=== PATIENT | female | born 1965 | race American Indian/Alaskan Native ===

== ENCOUNTER 2019-04-28 00:49 | Observation (INO) | payer OTHER ==
[2019-04-28] MEDS ORDERED: MECLIZINE 25 MG TAB PO ONE (01:42)
[2019-04-28 02:19] LABS: Basophils # (Auto) 0.1 K/mm3 (0.0-0.1); Basophils % (Auto) 0.7 % (0.0-1.8); Eosinophils % (Auto) 0.1 % (0.0-4.3); Lymphocytes # (Auto) 2.4 K/mm3 (1.2-5.4); Lymphocytes % (Auto) 20.7 % (13.4-35.0); Mean Corpuscular HGB Conc 28 % (30-34); Monocytes # (Auto) 0.7 K/mm3 (0.0-0.8); Monocytes % (Auto) 5.8 % (0.0-7.3); Platelet Count 556 K/mm3 (140-440); Red Blood Count 3.45 M/mm3 (3.65-5.03); Red Cell Distribution Width 18.2 % (13.2-15.2)
--- NOTE | 2019-04-28 02:40 | Emergency Department Report ---
ED General Adult HPI - General Chief complaint: Dizziness Stated complaint: HIGH BLOOD GLUCOSE Time Seen by Provider: 04/28/19 01:34 Source: patient Mode of arrival: Ambulatory Limitations: No Limitations - History of Present Illness Initial comments: patient is a 53-year-old female presents emergency room with complaints of lightheadedness that began 4 days ago. She has associated nausea. She states she also has dizziness which is worse with laying flat. Patient states that tonight she was at the game when she began to feel dizzy and had an episode of vomiting. she states that the paramedics checked her blood sugar and it was 290. Patient denies any chest pain, shortness of breath, diarrhea, abdominal pain, vision changes, numbness, weakness. She states she has a past medical history of anxiety and panic attacks. She denies any allergies medications. Patient states that when she was a teenager while she was she had anemia but never had to receive a blood transfusion. She states lately she has been eating a lot of ice. she denies any melena, hematochezia, hematemesis. States occasionally she does have heavy menstrual cycles. Severity scale (0 -10): 0 - Related Data Previous Rx's Medication Instructions Recorded Last Taken Type ALBUTEROL Inhaler(NF) [VENTOLIN 2 puff IH QID PRN #1 inha 03/23/18 Unknown Rx Inhaler(NF)] Azithromycin 250 mg PO DAILY #6 tablet 03/23/18 Unknown Rx Benzonatate [Tessalon Perle] 100 mg PO TID PRN #30 capsule 03/23/18 Unknown Rx Ibuprofen [Ibuprofen 800] 800 mg PO TID PRN #30 tablet 03/23/18 Unknown Rx predniSONE [Deltasone] 40 mg PO QDAY #10 tab 03/23/18 Unknown Rx Allergies Allergy/AdvReac Type Severity Reaction Status Date / Time No Known Allergies Allergy Unverified 03/23/18 17:51 ED Review of Systems ROS: Stated complaint: HIGH BLOOD GLUCOSE Other details as noted in HPI Comment: All other systems reviewed and negative ED Past Medical Hx - Past Medical History Previous Medical History?: No - Surgical History Past Surgical History?: No - Social History Smoking Status: Never Smoker Substance Use Type: None - Medications Home Medications: Home Medications Medication Instructions Recorded Confirmed Last Taken Type ALBUTEROL Inhaler(NF) [VENTOLIN 2 puff IH QID PRN #1 inha 03/23/18 Unknown Rx Inhaler(NF)] Azithromycin 250 mg PO DAILY #6 tablet 03/23/18 Unknown Rx Benzonatate [Tessalon Perle] 100 mg PO TID PRN #30 capsule 03/23/18 Unknown Rx Ibuprofen [Ibuprofen 800] 800 mg PO TID PRN #30 tablet 03/23/18 Unknown Rx predniSONE [Deltasone] 40 mg PO QDAY #10 tab 03/23/18 Unknown Rx ED Physical Exam - General Limitations: No Limitations General appearance: alert, in no apparent distress - Head Head exam: Present: atraumatic, normocephalic - Eye Eye exam: Present: normal appearance, PERRL, EOMI - ENT ENT exam: Present: mucous membranes moist, TM's normal bilaterally, normal external ear exam - Respiratory Respiratory exam: Present: normal lung sounds bilaterally. Absent: respiratory distress, wheezes, rales, rhonchi, stridor, chest wall tenderness, accessory muscle use, decreased breath sounds, prolonged expiratory - Cardiovascular Cardiovascular Exam: Present: regular rate, normal rhythm, normal heart sounds. Absent: systolic murmur, diastolic murmur, rubs, gallop - Neurological Exam Neurological exam: Present: alert, oriented X3, CN II-XII intact, normal gait, other (normal finger to nose, normal heel to pimentel, 5/5 strength in the BUE/BLE, sensation intact throughout, no focal neuro deficits). Absent: motor sensory deficit - Psychiatric Psychiatric exam: Present: normal affect, normal mood - Skin Skin exam: Present: warm, dry, intact ED Course Vital Signs 04/28/19 04/28/19 00:57 02:05 Temperature 98.2 F 98.2 F Pulse Rate 105 H 97 H Respiratory 17 18 Rate Blood Pressure 158/65 Blood Pressure 151/85 [Left] O2 Sat by Pulse 100 100 Oximetry - Consultations Consultation #1: 04/28/19 02:[address] Escalera, hospitalist concerning patient and lab results will admit pt to the hospital, will accept and resume care of patient advised MedSurg observation, advised to transfuse two units pRBCs. ED Medical Decision Making - Lab Data Result diagrams: 04/28/19 01:48 04/28/19 01:48 Lab Results 04/28/19 04/28/19 04/28/19 Range/Units 01:10 01:48 01:48 WBC 11.4 H (4.5-11.0) K/mm3 RBC 3.45 L (3.65-5.03) M/mm3 Hgb 5.8 L* (10.1-14.3) gm/dl Hct 20.7 L (30.3-42.9) % MCV 60 L (79-97) fl MCH 17 L (28-32) pg MCHC 28 L (30-34) % RDW 18.2 H (13.2-15.2) % Plt Count 556 H (140-440) K/mm3 Lymph % (Auto) 20.7 (13.4-35.0) % [place] % (Auto) 5.8 (0.0-7.3) % Eos % (Auto) 0.1 (0.0-4.3) % Baso % (Auto) 0.7 (0.0-1.8) % Lymph # 2.4 (1.2-5.4) K/mm3 [place] # 0.7 (0.0-0.8) K/mm3 Eos # 0.0 (0.0-0.4) K/mm3 Baso # 0.1 (0.0-0.1) K/mm3 Seg Neutrophils % 72.7 H (40.0-70.0) % Seg Neutrophils # 8.3 H (1.8-7.7) K/mm3 Sodium 134 L (137-145) mmol/L Potassium 3.6 (3.6-5.0) mmol/L Chloride 100.5 (98-107) mmol/L Carbon Dioxide 21 L (22-30) mmol/L Anion Gap 16 mmol/L BUN 5 L (7-17) mg/dL Creatinine 0.6 L (0.7-1.2) mg/dL Estimated GFR > 60 ml/min BUN/Creatinine Ratio 8 % Glucose 209 H (65-100) mg/dL POC Glucose 226 H (70-105) Calcium 8.9 (8.4-10.2) mg/dL Phosphorus 2.00 L (2.5-4.5) mg/dL Magnesium 1.70 (1.7-2.3) mg/dL Total Bilirubin 0.30 (0.1-1.2) mg/dL AST 11 (5-40) units/L ALT 8 (7-56) units/L Alkaline Phosphatase 101 (35-129) units/L Total Protein 7.8 (6.3-8.2) g/dL Albumin 4.2 (3.9-5) g/dL Albumin/Globulin Ratio 1.2 % Plasma/Serum Alcohol (0-0.07) % 04/28/19 Range/Units 01:53 WBC (4.5-11.0) K/mm3 RBC (3.65-5.03) M/mm3 Hgb (10.1-14.3) gm/dl Hct (30.3-42.9) % MCV (79-97) fl MCH (28-32) pg MCHC (30-34) % RDW (13.2-15.2) % Plt Count (140-440) K/mm3 Lymph % (Auto) (13.4-35.0) % [place] % (Auto) (0.0-7.3) % Eos % (Auto) (0.0-4.3) % Baso % (Auto) (0.0-1.8) % Lymph # (1.2-5.4) K/mm3 [place] # (0.0-0.8) K/mm3 Eos # (0.0-0.4) K/mm3 Baso # (0.0-0.1) K/mm3 Seg Neutrophils % (40.0-70.0) % Seg Neutrophils # (1.8-7.7) K/mm3 Sodium (137-145) mmol/L Potassium (3.6-5.0) mmol/L Chloride (98-107) mmol/L Carbon Dioxide (22-30) mmol/L Anion Gap mmol/L BUN (7-17) mg/dL Creatinine (0.7-1.2) mg/dL Estimated GFR ml/min BUN/Creatinine Ratio % Glucose (65-100) mg/dL POC Glucose (70-105) Calcium (8.4-10.2) mg/dL Phosphorus (2.5-4.5) mg/dL Magnesium (1.7-2.3) mg/dL Total Bilirubin (0.1-1.2) mg/dL AST (5-40) units/L ALT (7-56) units/L Alkaline Phosphatase (35-129) units/L Total Protein (6.3-8.2) g/dL Albumin (3.9-5) g/dL Albumin/Globulin Ratio % Plasma/Serum Alcohol < 0.01 (0-0.07) % - EKG Data EKG shows normal: sinus rhythm, axis, intervals, ST-T waves Rate: normal - EKG Data 04/28/19 03:23 low voltage no STEMI - Medical Decision Making patient is a 53-year-old female presents emergency room with complaints of lightheadedness that began 4 days ago. She has associated nausea. She states she also has dizziness which is worse with laying flat. Patient states that tonight she was at the game when she began to feel dizzy and had an episode of vomiting. she states that the paramedics checked her blood sugar and it was 290. Patient denies any chest pain, shortness of breath, diarrhea, abdominal pain, vision changes, numbness, weakness. She states she has a past medical history of anxiety and panic attacks. She denies any allergies medications. Patient states that when she was a teenager while she was she had anemia but never had to receive a blood transfusion. She states lately she has been eating a lot of ice. she denies any melena, hematochezia, hematemesis. States occasionally she does have heavy menstrual cycles. initial vitals with mild tachycardia which improved upon repeat. on exam: normal finger to nose, normal heel to pimentel, 5/5 strength in the BUE/BLE, sensation intact throughout, no focal neuro deficits. EKG with low voltage otherwise normal. H/H is 5.8/20.7. phos is low at 2.0. repleted phos. Spoke with Dr. Escalera, hospitalist concerning patient and lab results will admit pt to the hospital, will accept and resume care of patient advised MedSurg observation, advised to transfuse two units pRBCs. pt transfused two units and admitted to the hospitalist. - Differential Diagnosis anemia, vertigo, labyrinthitis, otitis, Mnire's, electrolyte disturbance Critical care attestation.: If time is entered above; I have spent that time in minutes in the direct care of this critically ill patient, excluding procedure time. ED Disposition Clinical Impression: Symptomatic anemia, Dizziness, Nausea Disposition: DC-09 OP ADMIT IP TO THIS HOSP Is pt being admited?: Yes Does the pt Need Aspirin: No Condition: Fair Instructions: Anemia (ED) Referrals: PRIMARY CARE, [Primary Care Provider] - 3-5 Days
[2019-04-28 02:43] LABS: Hematocrit 20.7 % (30.3-42.9); Hemoglobin 5.8 gm/dl (10.1-14.3); Mean Corpuscular Volume 60 fl (79-97)
[2019-04-28] MEDS ORDERED: SODIUM CHLORIDE 0.9% 500 ML 500 ML IV ONE ×2 (02:43→02:54)
[2019-04-28 02:45] LABS: Alanine Aminotransferase 8 units/L (7-56); Albumin 4.2 g/dL (3.9-5); BUN/Creatinine Ratio 8; Blood Urea Nitrogen 5 mg/dL (7-17); Calcium 8.9 mg/dL (8.4-10.2); Hemolysis Index 0
[2019-04-28 02:55] LABS: Bacteria,Urine 1+ /HPF (Negative); Bilirubin,Urine NEG (Negative); Blood,Urine NEG (Negative); Color,Urine Colorless (Yellow); Protein,Urine <15 mg/dL mg/dL (Negative); RBC,Urine < 1.0 /HPF (0.0-6.0); Urobilinogen,Urine < 2.0 mg/dL (<2.0); WBC,Urine < 1.0 /HPF (0.0-6.0)
[2019-04-28] MEDS ORDERED: PHOS-NAK POWDER PACKET PO ONE (03:15)
[2019-04-28 03:51] LABS: INR 1.04 (0.87-1.13)
[2019-04-28 03:52] LABS: Partial Thromboplastin Time 29.2 Sec. (24.2-36.6)
[2019-04-28] MEDS ORDERED: SODIUM CHLORIDE 0.9% 500 ML 500 ML ONE (04:50)
[2019-04-28] MEDS ORDERED: oxyCODONE /ACETAMINOPHEN 5-325MG TAB PO PRN (05:11)
[2019-04-28] MEDS ORDERED: HYDROmorphone 1 MG/1 ML INJ IV PRN (05:11)
[2019-04-28] MEDS ORDERED: ACETAMINOPHEN 325 MG TAB PO PRN (05:11)
[2019-04-28] MEDS ORDERED: ONDANSETRON 4 MG/2 ML INJ IV PRN (05:11)
--- NOTE | 2019-04-28 05:18 | History and Physical Report ---
History of Present Illness Date of examination: 04/28/19 Date of admission: 04/28/19 02:56 Chief complaint: Weak and lightheaded for 4 days History of present illness: 53-year-old -[place] female with no significant past medical history except for episodic asthma comes in for feeling weak and lightheaded for 4 days. Patient also has been feeling dizzy. Eating ice chips on a regular basis.Heaavy menstrual paeriods for one day.Menstual periods last for 3 days. No epistaxis, vomiting of blood black tarry stools. Patient had one episode of anemia many ye ars ago when she was . No GI bleed. Gets tired easily. Past Medical History Previous Medical History?: No Surgical History Past Surgical History?: No Social History Smoking Status: Never Smoker Substance Use Type: None Family history Htn - Medications Home Medications: Home Medications Medication Instructions Recorded Confirmed Last Taken Type ALBUTEROL Inhaler(NF) [VENTOLIN 2 puff IH QID PRN #1 inha 03/23/18 Unknown Rx Inhaler(NF)] Azithromycin 250 mg PO DAILY #6 tablet 03/23/18 Unknown Rx Benzonatate [Tessalon Perle] 100 mg PO TID PRN #30 capsule 03/23/18 Unknown Rx Ibuprofen [Ibuprofen 800] 800 mg PO TID PRN #30 tablet 03/23/18 Unknown Rx predniSONE [Deltasone] 40 mg PO QDAY #10 tab 03/23/18 Unknown Rx Review of Systems ROS: Stated complaint: HIGH BLOOD GLUCOSE Other details as noted in HPI Comment: All other systems reviewed and negative Medications and Allergies Allergies Allergy/AdvReac Type Severity Reaction Status Date / Time No Known Allergies Allergy Unverified 03/23/18 17:51 Home Medications Medication Instructions Recorded Confirmed Last Taken Type No Known Home Medications [No 04/28/19 04/28/19 Unknown History Reported Home Medications] Exam - Constitutional Vitals: Temp Pulse Resp BP Pulse Ox 98.4 F 97 H 20 128/69 97 04/28/19 05:15 04/28/19 05:15 04/28/19 05:15 04/28/19 05:15 04/28/19 05:15 General appearance: Present: no acute distress, well-nourished - EENT Eyes: Present: PERRL ENT: hearing intact, clear oral mucosa - Neck Neck: Present: supple, normal ROM - Respiratory Respiratory effort: normal Respiratory: bilateral: CTA - Cardiovascular Heart rate: 78 Rhythm: regular Heart Sounds: Present: S1 & S2. Absent: rub, click - Extremities Extremities: no ischemia, pulses intact, pulses symmetrical, No edema Peripheral Pulses: within normal limits - Abdominal General gastrointestinal: Present: soft, non-tender, non-distended, normal bowel sounds Female genitourinary: Present: normal - Rectal Rectal Exam: deferred - Integumentary Integumentary: Present: clear, warm, dry - Musculoskeletal Musculoskeletal: gait normal, strength equal bilaterally - Psychiatric Psychiatric: appropriate mood/affect, intact judgment & insight - Neurologic Neurologic: CNII-XII intact, moves all extremities - Allied Health Allied health notes reviewed: nursing, case management Results - Labs CBC & Chem 7: 04/28/19 01:48 04/28/19 01:48 Labs: Laboratory Last Values WBC 11.4 K/mm3 (4.5-11.0) H 04/28/19 01:48 RBC 3.45 M/mm3 (3.65-5.03) L 04/28/19 01:48 Hgb 5.8 gm/dl (10.1-14.3) L* 04/28/19 01:48 Hct 20.7 % (30.3-42.9) L 04/28/19 01:48 MCV 60 fl (79-97) L 04/28/19 01:48 MCH 17 pg (28-32) L 04/28/19 01:48 MCHC 28 % (30-34) L 04/28/19 01:48 RDW 18.2 % (13.2-15.2) H 04/28/19 01:48 Plt Count 556 K/mm3 (140-440) H 04/28/19 01:48 Lymph % (Auto) 20.7 % (13.4-35.0) 04/28/19 01:48 [place] % (Auto) 5.8 % (0.0-7.3) 04/28/19 01:48 Eos % (Auto) 0.1 % (0.0-4.3) 04/28/19 01:48 Baso % (Auto) 0.7 % (0.0-1.8) 04/28/19 01:48 Lymph # 2.4 K/mm3 (1.2-5.4) 04/28/19 01:48 [place] # 0.7 K/mm3 (0.0-0.8) 04/28/19 01:48 Eos # 0.0 K/mm3 (0.0-0.4) 04/28/19 01:48 Baso # 0.1 K/mm3 (0.0-0.1) 04/28/19 01:48 Seg Neutrophils % 72.7 % (40.0-70.0) H 04/28/19 01:48 Seg Neutrophils # 8.3 K/mm3 (1.8-7.7) H 04/28/19 01:48 PT 13.5 Sec. (12.2-14.9) 04/28/19 03:09 INR 1.04 (0.87-1.13) 04/28/19 03:09 APTT 29.2 Sec. (24.2-36.6) 04/28/19 03:09 Sodium 134 mmol/L (137-145) L 04/28/19 01:48 Potassium 3.6 mmol/L (3.6-5.0) 04/28/19 01:48 Chloride 100.5 mmol/L (98-107) 04/28/19 01:48 Carbon Dioxide 21 mmol/L (22-30) L 04/28/19 01:48 Anion Gap 16 mmol/L 04/28/19 01:48 BUN 5 mg/dL (7-17) L 04/28/19 01:48 Creatinine 0.6 mg/dL (0.7-1.2) L 04/28/19 01:48 Estimated GFR > 60 ml/min 04/28/19 01:48 BUN/Creatinine Ratio 8 % 04/28/19 01:48 Glucose 209 mg/dL (65-100) H 04/28/19 01:48 POC Glucose 226 (70-105) H 04/28/19 01:10 Calcium 8.9 mg/dL (8.4-10.2) 04/28/19 01:48 Phosphorus 2.00 mg/dL (2.5-4.5) L 04/28/19 01:48 Magnesium 1.70 mg/dL (1.7-2.3) 04/28/19 01:48 Total Bilirubin 0.30 mg/dL (0.1-1.2) 04/28/19 01:48 AST 11 units/L (5-40) 04/28/19 01:48 ALT 8 units/L (7-56) 04/28/19 01:48 Alkaline Phosphatase 101 units/L (35-129) 04/28/19 01:48 Total Protein 7.8 g/dL (6.3-8.2) 04/28/19 01:48 Albumin 4.2 g/dL (3.9-5) 04/28/19 01:48 Albumin/Globulin Ratio 1.2 % 04/28/19 01:48 Urine Color Colorless (Yellow) 04/28/19 02:36 Urine Turbidity Clear (Clear) 04/28/19 02:36 Urine pH 7.0 (5.0-7.0) 04/28/19 02:36 Ur Specific [place] 1.003 (1.003-1.030) 04/28/19 02:36 Urine Protein <15 mg/dl mg/dL (Negative) 04/28/19 02:36 Urine Glucose (UA) Neg mg/dL (Negative) 04/28/19 02:36 Urine Ketones Neg mg/dL (Negative) 04/28/19 02:36 Urine Blood Neg (Negative) 04/28/19 02:36 Urine Nitrite Neg (Negative) 04/28/19 02:36 Urine Bilirubin Neg (Negative) 04/28/19 02:36 Urine Urobilinogen < 2.0 mg/dL (<2.0) 04/28/19 02:36 Ur Leukocyte Esterase Neg (Negative) 04/28/19 02:36 Urine WBC (Auto) < 1.0 /HPF (0.0-6.0) 04/28/19 02:36 Urine RBC (Auto) < 1.0 /HPF (0.0-6.0) 04/28/19 02:36 U Epithel Cells (Auto) < 1.0 /HPF (0-13.0) 04/28/19 02:36 Urine Bacteria (Auto) 1+ /HPF (Negative) 04/28/19 02:36 Plasma/Serum Alcohol < 0.01 % (0-0.07) 04/28/19 01:53 Blood Type O POSITIVE 04/28/19 03:09 Antibody Screen Negative 04/28/19 03:09 Crossmatch See Detail 04/28/19 03:09 Assessment and Plan Advance Directives: Yes (full code) VTE prophylaxis?: Chemical Plan of care discussed with patient/family: Yes - Patient Problems (1) Symptomatic anemia Current Visit: Yes Status: Acute Plan to address problem: Patient's anemia may be nutritional. Iron levels, B12 and folic acid ordered No source of bleeding. Her menstrual periods are near normal. GI evaluation as an outpatient. Transfuse 2 units of blood (2) Diabetes mellitus, new onset Current Visit: Yes Status: Acute Plan to address problem: Patient counseled about new onset diabetes Patient started on metformin and coverage Primary team to decide about the hypoglycemics. Dietitian consult requested (3) Hyponatremia Current Visit: Yes Status: Acute Plan to address problem: Mild Should correct with IV Fluids. (4) DVT prophylaxis Current Visit: Yes Status: Acute Plan to address problem: SCDs and GI prophylaxis
[2019-04-28] MEDS ORDERED: SODIUM CHLORIDE 0.9% 1000 ML 1,000 ML IV SCH (06:00)
[2019-04-28] MEDS: INSULIN LISPRO 100 UNIT/ML SUB-Q SCH ×4 (07:30→23:08)
[2019-04-28] MEDS: FAMOTIDINE 20 MG/2 ML INJ IV SCH ×2 (10:09→23:08)
--- NOTE | 2019-04-28 12:40 | Consultation ---
History of Present Illness Consult date: 04/28/19 Requesting physician: YANY BRADLEY Reason for consult: menorrhagia History of present illness: Pt is a 53-year-old -[place] female LMP 04/09/19 with no significant past medical history except for episodic asthma comes in for feeling weak and lightheaded for 4 days. Patient also has been feeling dizzy, eating ice chips on a regular basis. Her menstrual cycles are heavy for 1 day and last for 3 days. No epistaxis, vomiting of blood black tarry stools. Patient had one episode of anemia many years ago when she was . No GI bleed. Gets tired easily. She denies history of fibroids or recent Hearing Specialist evaluation, so I have been consulted to evaluate her Menorrhagia. Past History Past Medical History: diabetes Past Surgical History: no surgical history PATIENT INTAKE COORDINATOR History: denies: abnormal PAP smear, fibroids Family/Genetic History: none Social history: no significant social history, single Medications and Allergies Allergies Allergy/AdvReac Type Severity Reaction Status Date / Time No Known Allergies Allergy Unverified 03/23/18 17:51 Home Medications Medication Instructions Recorded Confirmed Last Taken Type No Known Home Medications [No 04/28/19 04/28/19 Unknown History Reported Home Medications] Active Meds: Active Medications Acetaminophen (Tylenol) 650 mg PO Q4H PRN PRN Reason: Pain MILD(1-3)/Fever >100.5/RAMIREZ Famotidine (Pepcid) 20 mg IV BID TETE Last Admin: 04/28/19 10:09 Dose: 20 mg Documented by: Hydromorphone HCl (Dilaudid) 0.5 mg IV Q3H PRN PRN Reason: Pain , Severe (7-10) Sodium Chloride (Nacl 0.9% 1000 Ml) 1,000 mls @ 42 mls/hr IV DIRECT TETE Insulin Human Lispro (Humalog) 0 unit SUB-Q ACHS TETE; Protocol Last Admin: 04/28/19 11:30 Dose: 3 unit Documented by: Ondansetron HCl (Zofran) 4 mg IV Q8H PRN PRN Reason: Nausea And Vomiting Oxycodone/Acetaminophen (Percocet 5/325) 1 tab PO Q6H PRN PRN Reason: Pain, Moderate (4-6) Sodium Chloride (Sodium Chloride Flush Syringe 10 Ml) 10 ml IV BID [facility] Last Admin: 04/28/19 10:09 Dose: 10 ml Documented by: Sodium Chloride (Sodium Chloride Flush Syringe 10 Ml) 10 ml IV PRN PRN PRN Reason: LINE FLUSH - Vital Signs Vital signs: Vital Signs Temp Pulse Resp BP Pulse Ox 98.2 F 105 H 17 158/65 100 04/28/19 00:57 04/28/19 00:57 04/28/19 00:57 04/28/19 00:57 04/28/19 00:57 Temp Pulse Resp BP Pulse Ox 32.1 F L 94 H 18 119/65 96 04/28/19 11:38 04/28/19 11:38 04/28/19 11:38 04/28/19 11:38 04/28/19 11:38 - Physical Exam Breasts: Positive: deferred Cardiovascular: Regular rate Lungs: Positive: Clear to auscultation Abdomen: Positive: normal appearance Genitourinary (Female): Positive: other (deferred) Uterus: Positive: enlarged Extremities: Positive: normal Results Result Diagrams: 04/28/19 13:09 04/28/19 13:09 Abnormal lab results 04/28/19 04/28/19 04/28/19 Range/Units 01:10 01:48 01:48 WBC 11.4 H (4.5-11.0) K/mm3 RBC 3.45 L (3.65-5.03) M/mm3 Hgb 5.8 L* (10.1-14.3) gm/dl Hct 20.7 L (30.3-42.9) % MCV 60 L (79-97) fl MCH 17 L (28-32) pg MCHC 28 L (30-34) % RDW 18.2 H (13.2-15.2) % Plt Count 556 H (140-440) K/mm3 Seg Neutrophils % 72.7 H (40.0-70.0) % Seg Neutrophils # 8.3 H (1.8-7.7) K/mm3 Sodium 134 L (137-145) mmol/L Carbon Dioxide 21 L (22-30) mmol/L BUN 5 L (7-17) mg/dL Creatinine 0.6 L (0.7-1.2) mg/dL Glucose 209 H (65-100) mg/dL POC Glucose 226 H (70-105) Phosphorus 2.00 L (2.5-4.5) mg/dL Crossmatch 04/28/19 04/28/19 04/28/19 Range/Units 03:09 07:31 10:58 WBC (4.5-11.0) K/mm3 RBC (3.65-5.03) M/mm3 Hgb (10.1-14.3) gm/dl Hct (30.3-42.9) % MCV (79-97) fl MCH (28-32) pg MCHC (30-34) % RDW (13.2-15.2) % Plt Count (140-440) K/mm3 Seg Neutrophils % (40.0-70.0) % Seg Neutrophils # (1.8-7.7) K/mm3 Sodium (137-145) mmol/L Carbon Dioxide (22-30) mmol/L BUN (7-17) mg/dL Creatinine (0.7-1.2) mg/dL Glucose (65-100) mg/dL POC Glucose 191 H 200 H (70-105) Phosphorus (2.5-4.5) mg/dL Crossmatch See Detail All other labs normal. Ultrasound: report reviewed (Uterus 15 x 6.3 x 7.9cm with multiple fibroids - largest 2.9 x 2.4 x 2.1cm) Assessment and Plan - Patient Problems (1) Uterine fibroid Onset Date: 04/28/19 Current Visit: Yes Status: Acute Qualifiers: Uterine leiomyoma location: intramural and subserous Qualified Code(s): D25.1 - Intramural leiomyoma of uterus; D25.2 - Subserosal leiomyoma of uterus Plan to address problem: A: Symptomatic anemia Menorrhagia Uterine fibroids P: Agree with admission for symptomatic anemia - now resolved after blood transfusion Can follow up with me in the office for Pap and endometrial biopsy and further evaluation of uterine fibroids (2) Symptomatic anemia Onset Date: 04/28/19 Current Visit: Yes Status: Acute
[2019-04-28 14:07] LABS: BUN/Creatinine Ratio 14; Blood Urea Nitrogen 7 mg/dL (7-17); Calcium 9.2 mg/dL (8.4-10.2); Hemolysis Index 0
[2019-04-28 14:08] LABS: Hematocrit 26.4 % (30.3-42.9); Hemoglobin 8.4 gm/dl (10.1-14.3); Mean Corpuscular HGB Conc 32 % (30-34); Platelet Count 524 K/mm3 (140-440); Red Blood Count 4.03 M/mm3 (3.65-5.03)
[2019-04-28 14:11] LABS: Mean Corpuscular Volume 65 fl (79-97); Red Cell Distribution Width 26.2 % (13.2-15.2)
[2019-04-28 14:36] LABS: % Iron Saturation 4.85 %
[2019-04-28 15:22] LABS: Anisocytosis 2+; Basophils % (Manual) 0 % (0.0-1.8); Hypochromasia 1+; Total Cells Counted 100
--- NOTE | 2019-04-28 18:41 | Ultrasound Report ---
ULTRASOUND PELVIS INDICATION / CLINICAL INFORMATION: menorrhagia. TECHNIQUE: Transabdominal. Duplex Color Doppler used: Yes. COMPARISON: None available FINDINGS: UTERUS: Present. - Appearance (if present): No significant abnormality. - Size in cm (if present): 15 x 6.3 x 7.9. - Endometrial Complex (if present): No significant abnormality.. Thickness in cm (if measured) = 1.8 - Mass lesions: There are multiple uterine fibroids. The largest in the right superior myometrium natalia sures 2.9 x 2.4 x 2.1 cm. There are several additional small myometrial fibroids measuring around 2 t o 3 cm. - Additional findings: None. RIGHT ADNEXA: Not well visualized. No adnexal masses. LEFT ADNEXA: There is a 2.9 cm simple cyst in the left ovary, probable dominant follicle. Normal colo r Doppler blood flow. URINARY BLADDER: No significant abnormality. FREE FLUID: None. ADDITIONAL FINDINGS: None. IMPRESSION: 1. Enlarged uterus containing multiple uterine fibroids. 2. Dominant follicle in the left ovary. 3. The right ovary was not discretely visualized but there are no appreciable adnexal masses. Signer Name: Vamsi Trejo MD Signed: 04/28/2019 6:36 PM Workstation Name: [id number]
[2019-04-29 04:35] LABS: Hematocrit 25.5 % (30.3-42.9); Mean Corpuscular HGB Conc 31 % (30-34); Platelet Count 472 K/mm3 (140-440); Red Blood Count 3.87 M/mm3 (3.65-5.03)
[2019-04-29 04:51] LABS: Mean Corpuscular Volume 66 fl (79-97)
[2019-04-29 04:52] LABS: Red Cell Distribution Width 26.2 % (13.2-15.2)
[2019-04-29 04:56] LABS: BUN/Creatinine Ratio 10; Blood Urea Nitrogen 6 mg/dL (7-17); Calcium 8.5 mg/dL (8.4-10.2); Hemolysis Index 0
[2019-04-29 05:21] LABS: Anisocytosis 3+; Basophils % (Manual) 0 % (0.0-1.8); Eosinophils % (Manual) 0 % (0.0-4.3); Total Cells Counted 100
[2019-04-29 05:22] LABS: Hypochromasia 2+; Platelet Estimate Consistent w Auto
[2019-04-29] MEDS: INSULIN LISPRO 100 UNIT/ML SUB-Q SCH ×4 (08:30→23:52)
--- NOTE | 2019-04-29 08:40 | Discharge Summary ---
Providers - Providers Date of Admission: 04/28/19 02:56 Attending physician: YANY BRADLEY MD 04/28/19 06:00 Consult to Dietitian/Nutrition [CONS] Routine Physician Instructions: Reason For Exam: Reason for Consult: Pt needs oral supplement 04/28/19 10:06 Consult to Physician [CONS] Routine Comment: Consulting Provider: JAYLEN MCLEOD Physician Instructions: Reason For Exam: menorrhagia Primary care physician: COOPERATIVE EDUCATION COORDINATOR Hospitalization Condition: Fair Disposition: DC-01 TO HOME OR SELFCARE Time spent for discharge: 33 mins Core Measure Documentation - Palliative Care Palliative Care/ Comfort Measures: Not Applicable Exam - Constitutional Vitals: Temp Pulse Resp BP Pulse Ox 98.0 F 77 20 134/63 98 04/28/19 22:10 04/29/19 06:46 04/29/19 06:46 04/29/19 06:46 04/29/19 06:46 Plan Additional Instructions: Please see your PCP for referal to supervisor coin machine. - you need repeat thyroid test in 6-8 weeks Follow up with: REBEKAH ROMERO MD [Staff Physician] - 7 Days PRIMARY MD AMISHA [Primary Care Provider] - 3-5 Days JAYLEN MCLEOD MD [Staff Physician] - 7 Days Prescriptions: Ferrous Gluconate [Ferrous Gluconate 324 MG] 324 mg PO DAILY #30 tablet methIMAzole [Tapazole] 5 mg PO Q8HR #90 tablet
[2019-04-29] MEDS: FAMOTIDINE 20 MG TAB PO SCH ×2 (14:19→23:55)
[2019-04-29] MEDS: methIMAzole 5 MG TAB PO SCH (23:55)
[2019-04-30] MEDS: methIMAzole 5 MG TAB PO SCH ×2 (06:13→15:06)
[2019-04-30] MEDS: FAMOTIDINE 20 MG TAB PO SCH (10:07)
[2019-04-30] MEDS: INSULIN LISPRO 100 UNIT/ML SUB-Q SCH ×3 (10:08→17:34)
--- NOTE | 2019-04-30 12:21 | Progress Note ---
Hospitalist Physical - Constitutional Vitals: Temp Pulse Resp BP Pulse Ox 98.2 F 90 16 108/48 99 04/30/19 06:06 04/30/19 06:06 04/30/19 06:06 04/30/19 06:06 04/30/19 06:06 General appearance: Present: no acute distress, well-nourished Results - Labs CBC & Chem 7: 04/29/19 04:17 04/29/19 04:17 Labs: Laboratory Last Values WBC 10.0 K/mm3 (4.5-11.0) 04/29/19 04:17 RBC 3.87 M/mm3 (3.65-5.03) 04/29/19 04:17 Hgb 8.0 gm/dl (10.1-14.3) L 04/29/19 04:17 Hct 25.5 % (30.3-42.9) L 04/29/19 04:17 MCV 66 fl (79-97) L 04/29/19 04:17 MCH 21 pg (28-32) L 04/29/19 04:17 MCHC 31 % (30-34) 04/29/19 04:17 RDW 26.2 % (13.2-15.2) H 04/29/19 04:17 Plt Count 472 K/mm3 (140-440) H 04/29/19 04:17 Lymph % (Auto) 20.7 % (13.4-35.0) 04/28/19 01:48 Mccone % (Auto) 5.8 % (0.0-7.3) 04/28/19 01:48 Eos % (Auto) 0.1 % (0.0-4.3) 04/28/19 01:48 Baso % (Auto) 0.7 % (0.0-1.8) 04/28/19 01:48 Lymph # 2.4 K/mm3 (1.2-5.4) 04/28/19 01:48 Mccone # 0.7 K/mm3 (0.0-0.8) 04/28/19 01:48 Eos # 0.0 K/mm3 (0.0-0.4) 04/28/19 01:48 Baso # 0.1 K/mm3 (0.0-0.1) 04/28/19 01:48 Add Manual Diff Complete 04/29/19 04:17 Total Counted 100 04/29/19 04:17 Seg Neutrophils % 72.7 % (40.0-70.0) H 04/28/19 01:48 Seg Neuts % (Manual) 58.0 % (40.0-70.0) 04/29/19 04:17 Band Neutrophils % 0 % 04/29/19 04:17 Lymphocytes % (Manual) 36.0 % (13.4-35.0) H 04/29/19 04:17 Reactive Lymphs % (Man) 0 % 04/29/19 04:17 Monocytes % (Manual) 6.0 % (0.0-7.3) 04/29/19 04:17 Eosinophils % (Manual) 0 % (0.0-4.3) 04/29/19 04:17 Basophils % (Manual) 0 % (0.0-1.8) 04/29/19 04:17 Metamyelocytes % 0 % 04/29/19 04:17 Myelocytes % 0 % 04/29/19 04:17 Promyelocytes % 0 % 04/29/19 04:17 Blast Cells % 0 % 04/29/19 04:17 Nucleated RBC % Not Reportable 04/29/19 04:17 Seg Neutrophils # 8.3 K/mm3 (1.8-7.7) H 04/28/19 01:48 Seg Neutrophils # Man 5.8 K/mm3 (1.8-7.7) 04/29/19 04:17 Band Neutrophils # 0.0 K/mm3 04/29/19 04:17 Lymphocytes # (Manual) 3.6 K/mm3 (1.2-5.4) 04/29/19 04:17 Abs React Lymphs (Man) 0.0 K/mm3 04/29/19 04:17 Monocytes # (Manual) 0.6 K/mm3 (0.0-0.8) 04/29/19 04:17 Eosinophils # (Manual) 0.0 K/mm3 (0.0-0.4) 04/29/19 04:17 Basophils # (Manual) 0.0 K/mm3 (0.0-0.1) 04/29/19 04:17 Metamyelocytes # 0.0 K/mm3 04/29/19 04:17 Myelocytes # 0.0 K/mm3 04/29/19 04:17 Promyelocytes # 0.0 K/mm3 04/29/19 04:17 Blast Cells # 0.0 K/mm3 04/29/19 04:17 WBC Morphology Not Reportable 04/29/19 04:17 Hypersegmented Neuts Not Reportable 04/29/19 04:17 Hyposegmented Neuts Not Reportable 04/29/19 04:17 Hypogranular Neuts Not Reportable 04/29/19 04:17 Smudge Cells Not Reportable 04/29/19 04:17 Toxic Granulation Not Reportable 04/29/19 04:17 Toxic Vacuolation Not Reportable 04/29/19 04:17 Dohle Bodies Not Reportable 04/29/19 04:17 Pelger-Huet Anomaly Not Reportable 04/29/19 04:17 Sudarshan Rods Not Reportable 04/29/19 04:17 Platelet Estimate Consistent w auto 04/29/19 04:17 Clumped Platelets Not Reportable 04/29/19 04:17 Plt Clumps, EDTA Not Reportable 04/29/19 04:17 Large Platelets Not Reportable 04/29/19 04:17 Giant Platelets Not Reportable 04/29/19 04:17 Platelet Satelliting Not Reportable 04/29/19 04:17 Plt Morphology Comment Not Reportable 04/29/19 04:17 RBC Morphology Not Reportable 04/29/19 04:17 Dimorphic RBCs Not Reportable 04/29/19 04:17 Polychromasia Not Reportable 04/29/19 04:17 Hypochromasia 2+ 04/29/19 04:17 Poikilocytosis Not Reportable 04/29/19 04:17 Anisocytosis 3+ 04/29/19 04:17 Microcytosis 1+ 04/29/19 04:17 Macrocytosis Not Reportable 04/29/19 04:17 Spherocytes Not Reportable 04/29/19 04:17 Pappenheimer Bodies Not Reportable 04/29/19 04:17 Sickle Cells Not Reportable 04/29/19 04:17 Target Cells Not Reportable 04/29/19 04:17 Tear Drop Cells Not Reportable 04/29/19 04:17 Ovalocytes Not Reportable 04/29/19 04:17 Helmet Cells Not Reportable 04/29/19 04:17 Orozco-Cucumber Bodies Not Reportable 04/29/19 04:17 Pollock Rings Not Reportable 04/29/19 04:17 Deangelo Cells Not Reportable 04/29/19 04:17 Bite Cells Not Reportable 04/29/19 04:17 Crenated Cell Not Reportable 04/29/19 04:17 Elliptocytes Rare 04/29/19 04:17 Acanthocytes (Spur) Not Reportable 04/29/19 04:17 Rouleaux Not Reportable 04/29/19 04:17 Hemoglobin C Crystals Not Reportable 04/29/19 04:17 Schistocytes Not Reportable 04/29/19 04:17 Malaria parasites Not Reportable 04/29/19 04:17 Bacilio Bodies Not Reportable 04/29/19 04:17 Hem Pathologist Commnt No 04/29/19 04:17 PT 13.5 Sec. (12.2-14.9) 04/28/19 03:09 INR 1.04 (0.87-1.13) 04/28/19 03:09 APTT 29.2 Sec. (24.2-36.6) 04/28/19 03:09 Sodium 137 mmol/L (137-145) 04/29/19 04:17 Potassium 4.1 mmol/L (3.6-5.0) 04/29/19 04:17 Chloride 105.7 mmol/L (98-107) 04/29/19 04:17 Carbon Dioxide 22 mmol/L (22-30) 04/29/19 04:17 Anion Gap 13 mmol/L 04/29/19 04:17 BUN 6 mg/dL (7-17) L 04/29/19 04:17 Creatinine 0.6 mg/dL (0.7-1.2) L 04/29/19 04:17 Estimated GFR > 60 ml/min 04/29/19 04:17 BUN/Creatinine Ratio 10 % 04/29/19 04:17 Glucose 168 mg/dL (65-100) H 04/29/19 04:17 POC Glucose 196 (70-105) H 04/30/19 11:38 Hemoglobin A1c 6.1 % (4-6) H 04/28/19 13:09 Calcium 8.5 mg/dL (8.4-10.2) 04/29/19 04:17 Phosphorus 2.00 mg/dL (2.5-4.5) L 04/28/19 01:48 Magnesium 1.70 mg/dL (1.7-2.3) 04/28/19 01:48 Iron 21 ug/dL (37-170) L 04/28/19 13:09 TIBC 433 mcg/dL (250-450) 04/28/19 13:09 % Saturation 4.85 % 04/28/19 13:09 Transferrin 374 mg/dl (192-382) 04/28/19 13:09 Total Bilirubin 0.30 mg/dL (0.1-1.2) 04/28/19 01:48 AST 11 units/L (5-40) 04/28/19 01:48 ALT 8 units/L (7-56) 04/28/19 01:48 Alkaline Phosphatase 101 units/L (35-129) 04/28/19 01:48 Total Protein 7.8 g/dL (6.3-8.2) 04/28/19 01:48 Albumin 4.2 g/dL (3.9-5) 04/28/19 01:48 Albumin/Globulin Ratio 1.2 % 04/28/19 01:48 Vitamin B12 539.2 pg/mL (211-911) 04/28/19 13:09 TSH 1.480 mlU/mL (0.270-4.200) 04/29/19 13:58 Free T4 1.49 ng/dL (0.76-1.46) H 04/29/19 13:58 Thyroxine (T4) 12.1 ug/dL (4.0-12.0) H 04/29/19 13:58 Urine Color Colorless (Yellow) 04/28/19 02:36 Urine Turbidity Clear (Clear) 04/28/19 02:36 Urine pH 7.0 (5.0-7.0) 04/28/19 02:36 Ur Specific [place] 1.003 (1.003-1.030) 04/28/19 02:36 Urine Protein <15 mg/dl mg/dL (Negative) 04/28/19 02:36 Urine Glucose (UA) Neg mg/dL (Negative) 04/28/19 02:36 Urine Ketones Neg mg/dL (Negative) 04/28/19 02:36 Urine Blood Neg (Negative) 04/28/19 02:36 Urine Nitrite Neg (Negative) 04/28/19 02:36 Urine Bilirubin Neg (Negative) 04/28/19 02:36 Urine Urobilinogen < 2.0 mg/dL (<2.0) 04/28/19 02:36 Ur Leukocyte Esterase Neg (Negative) 04/28/19 02:36 Urine WBC (Auto) < 1.0 /HPF (0.0-6.0) 04/28/19 02:36 Urine RBC (Auto) < 1.0 /HPF (0.0-6.0) 04/28/19 02:36 U Epithel Cells (Auto) < 1.0 /HPF (0-13.0) 04/28/19 02:36 Urine Bacteria (Auto) 1+ /HPF (Negative) 04/28/19 02:36 Plasma/Serum Alcohol < 0.01 % (0-0.07) 04/28/19 01:53 Blood Type O POSITIVE 04/28/19 03:09 Antibody Screen Negative 04/28/19 03:09 Crossmatch See Detail 04/28/19 03:09 Active Medications - Current Medications Current Medications: Generic Name Dose Route Start Last Admin Trade Name Freq PRN Reason Stop Dose Admin Acetaminophen 650 mg 04/28/19 05:11 04/29/19 14:19 Tylenol PO 650 mg Q4H PRN Administration Pain MILD(1-3)/Fever >100.5/RAMIREZ Famotidine 20 mg 04/29/19 10:00 04/30/19 10:07 Pepcid PO 20 mg BID TETE Administration Hydromorphone HCl 0.5 mg 04/28/19 05:11 Dilaudid IV Q3H PRN Pain , Severe (7-10) Sodium Chloride 1,000 mls @ 42 mls/hr 04/28/19 06:00 04/30/19 07:52 Nacl 0.9% 1000 Ml IV 42 mls/hr DIRECT TETE Administration Insulin Human Lispro 0 unit 04/28/19 07:30 04/30/19 10:08 Humalog SUB-Q 2 unit ACHS TETE Administration Protocol Methimazole 5 mg 04/29/19 22:00 04/30/19 06:13 Tapazole PO 5 mg Q8HR TETE Administration Ondansetron HCl 4 mg 04/28/19 05:11 Zofran IV Q8H PRN Nausea And Vomiting Oxycodone/Acetaminophen 1 tab 04/28/19 05:11 04/30/19 07:30 Percocet 5/325 PO 1 tab Q6H PRN Administration Pain, Moderate (4-6) Sodium Chloride 10 ml 04/28/19 10:00 04/30/19 10:08 Sodium Chloride Flush Syringe 10 Ml IV Not Given BID TETE Sodium Chloride 10 ml 04/28/19 05:11 Sodium Chloride Flush Syringe 10 Ml IV PRN PRN LINE FLUSH Nutrition/Malnutrition Assess - Dietary Evaluation Nutrition/Malnutrition Findings: Nutrition Notes Start: 04/28/19 13:25 Freq: Status: Active Protocol: Document 04/28/19 13:25 LM (Rec: 04/28/19 13:36 LM [id number]) Nutrition Notes Need for Assessment 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 No allyn score in chart. Pt stated she had N/V for a week [employer] and severe N/V yesterday. Pt stated she was able to eat well today. Pt reported her UBW is 180 lb ( 81.8kg). Discussed eating with DM in depth with pt, as pt said she was new to DM and unaware of CHO sources. Informed pt of DM classes at [facility]. Weight Status Obese #1 Nutrition Diagnosis Food and nutrition-related knowledge deficit Etiology No prior knowledge of DM diet As Evidenced by Signs and Symptoms Pt not knowing CHO sources, BG 209 Nutrition Intervention Change Diet Order: Consistent CHO Education Handouts Provided Carbohtdrate Counting for People with Diabetes Barriers to Learning No Barriers RD phone number provided Yes Patient aware of follow up options Yes Revisit per MD consult or patient Sign Off request:
[2019-04-30 18:37] VITALS: BP 149/77
== END 2019-04-30 20:10 | disposition home or self-care (01) ==
LOC: ED 00:49 → 3A 02:56
PROVIDERS: ADMIT Internal Medicine; ATTEND Internal Medicine
DX: D64.9 Anemia, unspecified (principal); E11.9 Type 2 diabetes mellitus without complications; E87.1 Hypo-osmolality and hyponatremia; D25.9 Leiomyoma of uterus, unspecified; J45.909 Unspecified asthma, uncomplicated; R42 Dizziness and giddiness; R11.0 Nausea
CPT/HCPCS: 36415; 36430; 76856; 80048; 80053; 81001; 82607; 82747; 82962; 83036; 83550; 83735; 84100; 84436; 84439; 84443; 85007; 85025; 85610; 85730; 86850; 86900; 86901; 86920; 93005; 93010; 96361; 96372; 96374; 96376; 99284; G0378; J7030; J7040; P9016; 80320; G0480; J1815